=== PATIENT | female | born 1970 | race Caucasian/White ===

== ENCOUNTER → 2016-07-05 | Outpatient (CLI) | payer OTHER ==
[~2016-07-05] MED LIST: AUGMENTIN PO; BENZONATATE PO; FERROUS SULFATE PO; IBUPROFEN800 MG PO; IRON1 TAB.SA PO; LEVOTHYROXINE50 MCG PO; LISINOPRIL-HCTZ1 T19 PO; PROMETHAZINE12.5 MG PO; SYNTHROID25 MCG PO
--- NOTE | ~2016-07-05 | MY11 ---
[facility] A Service of [facility] RADIOLOGY TEXT RESULTS PATIENT: OSCAR BHAT LOCATION: [facility] : 68 UNIT #: [id number] AGE: [address]: Akash Doctor NOT IN SYSTEM SEX: F ORDER DR: [id number] [facility] [address] [place], [place] [address] [id number] O MR#: [id number] Acc #: [id number] NAME: OSCAR BHAT : 1970 SEX: F STUDY DATE/TIME: 07/05/2016 8:18 UNIT: [facility] ROOM: STUDY DESCRIPTION: MY Mammogram Screening Dig Heladio Attending Physician: Akash Doctor Not In System Referring Physician: Tess Escamilla M.D. Ordering Physician: Physician Non-Staff Primary Care Physician: Kilo Ramriez M.D. MEDICAL IMAGING REPORT This report is preliminary unless electronic signature is present EXAM Digital screening mammogram 07/05/2016, [facility]. HISTORY 45-year-old woman positive family history, grandmother. Annual screen. COMPARISON Mammograms date to 10/01/2010 with most recent 05/07/2015. FINDINGS Digital imaging of each breast was completed utilizing a two-view examination of each breast in craniocaudal and mediolateral-oblique projections. Review and interpretation of digital mammograms include a second review in conjunction with FDA-approved CAD device. There is a normal parenchymal presentation bilaterally consistent with the patient's age. There are no breast masses imaged and no parenchymal asymmetry is visualized. There are no suspicious microcalcifications and I see no focal architectural disturbance. IMPRESSION Negative screening digital mammogram. One-year followup recommended. Patients over the age of 40 are entered into a reminder system with target due date for the next mammogram. A result letter will also be sent to the patient. BIRADS: 1 Negative Dictated by... Jordan Williamson M.D. [facility] A Service [facility] RADIOLOGY TEXT RESULTS PATIENT: OSCAR BHAT LOCATION: [facility] : 68 UNIT #: [id number] AGE: [address]: Generic Doctor NOT IN SYSTEM SEX: F ORDER DR: THIS IS AN ELECTRONICALLY VERIFIED REPORT Jordan Williamson M.D. at 07/05/2016 11:41 AM Luz TD: 07/05/2016 09:47 JOB #: [id number] MEDICAL IMAGING REPORT Page 1 of 1 COPY
== END | disposition home or self-care (01) ==
LOC: CWCC 07:46
DX: Z12.31 Encounter for screening mammogram for malignant neoplasm of breast (principal); Z80.3 Family history of malignant neoplasm of breast
CPT/HCPCS: G0202